=== PATIENT | male | born 1995 | race Hispanic/Latino ===

== ENCOUNTER → 2025-07-01 | Outpatient (CLI) | payer BC ==
--- NOTE | 2025-07-01 12:58 | HMCIMG ---
STUDY: ABDOMINAL ULTRASOUND HISTORY: Elevated liver function tests. TECHNIQUE: Transabdominal grayscale ultrasound of the abdomen with measurements obtained in longitudinal and transverse planes. COMPARISON: None FINDINGS: Liver: Enlarged at 19.0 cm in craniocaudal length with increased echogenicity consistent with hepatic steatosis. Gallbladder and biliary tree: Gallbladder wall measures 3 mm and appears normal. Gallbladder and biliary tree: Common bile duct measures 4 mm. Pancreas: Partially visualized. Right kidney: Measures 12.9 ??? 5.3 ??? 4.9 cm and appears normal. Left kidney: Measures 10.6 ??? 5.4 ??? 5.4 cm and appears normal.. Spleen: Measures 11.3 ??? 3.4 ??? 2.9 cm and appears normal. Inferior vena cava: Within normal limits. Aorta: Obscured. Miscellaneous: No additional abnormality described in the provided data. IMPRESSION: * Hepatomegaly with increased echogenicity consistent with hepatic steatosis in the setting of elevated liver enzymes. * Gallbladder wall thickness is normal and the common bile duct is nondilated (4 mm). * Kidneys and spleen within normal size parameters based on provided measurements. * Aorta is obscured on this examination. /Martin
== END | disposition home or self-care (01) ==
LOC: RAH 09:39
PROVIDERS: ATTEND Family Medicine
DX: R79.89 Other specified abnormal findings of blood chemistry (principal)
CPT/HCPCS: 76700